=== PATIENT | male | born 1975 | race Caucasian/White ===

== ENCOUNTER 2017-08-11 08:16 | Inpatient (IN) | payer SELFPAY ==
[2017-08-11] MEDS ORDERED: NS 1000 ML 1,000 ML IV ONE (08:20)
--- NOTE | 2017-08-11 08:27 | DR.GENAD ---
HPI - Complaint/Symptoms Chief Complaint Doctors Comments: Patient had what appeared to be a syncopal episode while in the lobby. He states that two days ago he began to be weak and this AM he came to the hospital for evaluation due to weakness. He reports that fifteen years ago he had weakness and had a bleeding ulcer that was cauterized in the stomach.Patients reports that patient has had rectal bleeding for two days. He took Goody powder for stomach pain. He stayed in bed for two days due to weakness. He denies any other medical problem. He admits to a fifteen year history of cigarettes use one pack every two days. He also dips. 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 He denies fever, vomiting or diarrhea. ROS - Review of Systems Constitutional: negative: Diaphoresis Eyes: No Symptoms Reported ENTM: No Symptoms Reported Respiratoy: No Symptoms Reported Cardiovascular: No Symptoms Reported Gastrointestinal/Abdominal: No Symptoms Reported Genitourinary: No Symptoms Reported Neurological: Weakness Musculoskeletal: No Symptoms Reported Integumentary: No Symptoms Reported Hematologic/Lymphatic: No Symptoms Reported Endocrine: No Symptoms Reported Psychiatric: No Symptoms Reported All Other Systems: Reviewed and Negative PE - Vital Signs Vitals: Temperature 96.3 F Pulse Rate 91 Respiratory Rate 20 Blood Pressure 117/66 O2 Sat by Pulse Oximetry 100 - General Limitations: No Limitations General Appearance: Alert, In No Apparent Distress - Head Head Exam: Normal Inspection, Atraumatic - Eyes Eye exam: Normal Appearance, PERRL, EOMI - ENT ENT Exam: Normal Exam, Normal Oropharynx External Ear Exam: Normal External Inspection TM/Canal Exam: Bilateral Normal Nose Exam: Normal Nose Exam Mouth Exam: Normal Inspection Throat Exam: Normal Inspection - Neck Neck Exam: Normal Inspection, Full ROM - Chest Chest Inspection: Normal Inspection - Respiratory Respiratory Exam: Normal Lung Sounds Bilat Respiratory Exam: Bilateral Clear to Auscultation - Cardiovascular Cardiovascular Exam: Regular Rate, Normal Rhythm - Abdominal Exam Abdominal Exam: Normal Inspection, Normal Bowel Sounds Abdominal Tenderness: negative: RUQ, RLQ, LUQ, LLQ, Epigastrium, Suprapubic, Diffuse, Mild, Moderate, Severe, Other - Extremities Extremities Exam: Full ROM - Back Back Exam: Normal Inspection, Full ROM - Neurologic Neurological Exam: Alert, Oriented X3, CN II-XII Intact - Psychiatric Psychiatric Exam: Normal Affect - Skin Skin Exam: Warm, Dry, Intact Course - Reevaluation 1st: Unchanged - Consultation Called: 09:20 (Dr Coffman recommended admission for evaluation and treatment, GI consult) ROR - Labs Reviewed Result Diagrams: 08/11/17 08:30 08/11/17 08:30 Laboratory: WBC 17.5 X10^3/uL (3.6-10.0) H 08/11/17 08:30 RBC 2.04 X10^6/uL (4.7-6.0) L 08/11/17 08:30 Hgb 6.4 g/dL (13.5-18.0) L* 08/11/17 08:30 Hct 18.7 % (42.0-54.0) L* 08/11/17 08:30 MCV 91.8 fL (80.0-100.0) 08/11/17 08:30 MCH 31.5 pg (27.0-34.0) 08/11/17 08:30 MCHC 34.4 g/dL (33.0-35.0) 08/11/17 08:30 RDW 12.8 % (11.6-16.5) 08/11/17 08:30 Plt Count 296 X10^3/uL (150.0-450.0) 08/11/17 08:30 MPV 9.6 fL (7.4-11.0) 08/11/17 08:30 Neut % 47.8 % (42.0-75.0) 08/11/17 08:30 Lymph % 45.7 % (21.0-51.0) 08/11/17 08:30 Clinch % 4.8 % (0.0-13.0) 08/11/17 08:30 Eos % 0.7 % (0.9-2.9) L 08/11/17 08:30 Baso % 1.0 % (0.2-1.0) 08/11/17 08:30 Neut # 8.3 x10^3/uL (2.2-4.8) H 08/11/17 08:30 Lymph # 8.0 X10^3/uL (1.3-2.9) H 08/11/17 08:30 Clinch # 0.8 x10^3/uL (0.3-0.8) 08/11/17 08:30 Eos # 0.1 x10^3/uL (0.0-0.2) 08/11/17 08:30 Baso # 0.2 X10^3/uL (0.0-0.1) H 08/11/17 08:30 Absolute Nucleated RBC 0.1 /100WBC 08/11/17 08:30 Sample Site Rra 08/11/17 08:22 ABG pH 7.480 (7.35-7.45) H 08/11/17 08:22 ABG pCO2 34.0 mmHg (35.0-45.0) L 08/11/17 08:22 ABG pO2 55.0 mmHg (80.0-100.0) L 08/11/17 08:22 ABG HCO3 25.3 mmol/L (22-26) 08/11/17 08:22 ABG O2 Saturation 91.0 % (90-100) 08/11/17 08:22 ABG Base Excess 2.1 mmol/L (-2.0-2.0) H 08/11/17 08:22 Ricardo Test Pos 08/11/17 08:22 A-a Gradient 102.0 mmHg 08/11/17 08:22 FiO2 28.000 08/11/17 08:22 Blood Gas Comments 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
[2017-08-11] MEDS ORDERED: ZOFRAN INJ 4 MG VIAL ONE (08:32)
[2017-08-11] MEDS ORDERED: ZOFRAN INJ 4 MG VIAL IVP ONE (08:32)
--- NOTE | 2017-08-11 08:38 | RAD ---
HISTORY: Weakness and abdominal pain Study: Portable AP chest Comparison: None Findings: The trachea is midline. The cardiac silhouette is unremarkable. The lungs are clear without focal i nfiltrate or effusion. The bony thorax is unremarkable. IMPRESSION: 1. No acute cardiopulmonary disease. Reported By:
[2017-08-11 08:39] VITALS: BMI 26.6
[2017-08-11 08:43] LABS: ABG BASE EXCESS 2.1 mmol/L (-2.0-2.0); ABG HCO3 25.3 mmol/L (22-26)
[2017-08-11 08:44] LABS: ABG ALLEN TEST POS
[2017-08-11 08:53] LABS: NEUTROPHILS # (AUTO) 8.3 x10^3/uL (2.2-4.8); NEUTROPHILS % (AUTO) 47.8 % (42.0-75.0)
[2017-08-11 08:59] LABS: BASOPHILS # (AUTO) 0.2 X10^3/uL (0.0-0.1); EOSINOPHILS # (AUTO) 0.1 x10^3/uL (0.0-0.2); EOSINOPHILS % (AUTO) 0.7 % (0.9-2.9); LYMPHOCYTES % (AUTO) 45.7 % (21.0-51.0); MEAN CORPUSCULAR HEMOGLOBIN 31.5 pg (27.0-34.0); MEAN CORPUSCULAR HGB CONC 34.4 g/dL (33.0-35.0); MEAN CORPUSCULAR VOLUME 91.8 fL (80.0-100.0); MEAN PLATELET VOLUME 9.6 fL (7.4-11.0); MONOCYTES # (AUTO) 0.8 x10^3/uL (0.3-0.8); MONOCYTES % (AUTO) 4.8 % (0.0-13.0); PLATELET COUNT 296 X10^3/uL (150.0-450.0); RED BLOOD COUNT 2.04 X10^6/uL (4.7-6.0); RED CELL DISTRIBUTION WIDTH 12.8 % (11.6-16.5); WHITE BLOOD COUNT 17.5 X10^3/uL (3.6-10.0)
[2017-08-11 09:03] LABS: HEMATOCRIT 18.7 % (42.0-54.0); HEMOGLOBIN 6.4 g/dL (13.5-18.0)
[2017-08-11 09:16] LABS: HYPOCHROMASIA 2+; PLATELET MORPHOLOGY COMMENT NORMAL (NORMAL)
[2017-08-11 09:21] LABS: BLOOD UREA NITROGEN 29 mg/dL (7-18); CALCIUM 7.8 mg/dL (8.5-10.1); CHLORIDE 108 mmol/L (98-107); COR NA(FOR HYPERGLY) 142 mmol/L (136-145); CREATININE 1.17 mg/dL (0.70-1.30); SODIUM 140 mmol/L (136-145); TROPONIN I < 0.02 ng/mL (0-1.5); eGFR BLACK RACES > 60 (>60); eGFR NON BLACK RACES > 60 (>60)
[2017-08-11 09:23] LABS: ALANINE AMINOTRANSFERASE 64 Units/L (12-78); ALBUMIN 2.2 g/dL (3.4-5.0); ALKALINE PHOSPHATASE 50 Units/L (46-116); ASPARTATE AMINO TRANSFERASE 35 Units/L (15-37); CKMB % 2.8 % (<4); COR CA(FOR HYPOALB) 9.2 mg/dL (8.5-10.1); CREATINE KINASE 36 Units/L (39-308); CREATINE KINASE MB < 1.0 ng/mL (0-4.0)
[2017-08-11] MEDS: NS 1000 ML 1,000 ML IV SCH (09:33)
[2017-08-11] MEDS ORDERED: ZOFRAN INJ 4 MG VIAL IVP PRN (09:33)
[2017-08-11] MEDS: PROTONIX INJ 40 MG VIAL 80 MG in NS 100 ML IV 80 ML IV SCH ×2 (11:18→19:28)
[2017-08-11] MEDS ORDERED: NS 250 ML IV 250 ML IV ONE ×2 (13:14→19:16)
[2017-08-12] MEDS: NS 1000 ML 1,000 ML IV SCH ×3 (00:05→19:45)
[2017-08-12 00:11] LABS: HEMOGLOBIN 7.7 g/dL (13.5-18.0)
[2017-08-12] MEDS: PROTONIX INJ 40 MG VIAL 80 MG in NS 100 ML IV 80 ML IV SCH ×4 (05:30→20:45)
[2017-08-12 06:10] LABS: BASOPHILS # (AUTO) 0.1 X10^3/uL (0.0-0.1); BASOPHILS % (AUTO) 0.8 % (0.2-1.0); EOSINOPHILS # (AUTO) 0.1 x10^3/uL (0.0-0.2); EOSINOPHILS % (AUTO) 0.8 % (0.9-2.9); HEMATOCRIT 22.2 % (42.0-54.0); LYMPHOCYTES # (AUTO) 4.6 X10^3/uL (1.3-2.9); LYMPHOCYTES % (AUTO) 35.4 % (21.0-51.0); MEAN CORPUSCULAR HEMOGLOBIN 31.1 pg (27.0-34.0); MEAN CORPUSCULAR HGB CONC 35.1 g/dL (33.0-35.0); MEAN CORPUSCULAR VOLUME 88.5 fL (80.0-100.0); MEAN PLATELET VOLUME 9.7 fL (7.4-11.0); MONOCYTES # (AUTO) 0.6 x10^3/uL (0.3-0.8); MONOCYTES % (AUTO) 4.6 % (0.0-13.0); NEUTROPHILS # (AUTO) 7.5 x10^3/uL (2.2-4.8); NEUTROPHILS % (AUTO) 58.4 % (42.0-75.0); PLATELET COUNT 211 X10^3/uL (150.0-450.0); RED BLOOD COUNT 2.51 X10^6/uL (4.7-6.0); RED CELL DISTRIBUTION WIDTH 13.3 % (11.6-16.5); WHITE BLOOD COUNT 12.9 X10^3/uL (3.6-10.0)
[2017-08-12 06:21] LABS: ALANINE AMINOTRANSFERASE 73 Units/L (12-78); ALBUMIN 2.2 g/dL (3.4-5.0); ALKALINE PHOSPHATASE 50 Units/L (46-116); ASPARTATE AMINO TRANSFERASE 48 Units/L (15-37); BLOOD UREA NITROGEN 18 mg/dL (7-18); CALCIUM 7.9 mg/dL (8.5-10.1); CARBON DIOXIDE 28.2 mmol/L (21-32); CHLORIDE 108 mmol/L (98-107); COR CA(FOR HYPOALB) 9.3 mg/dL (8.5-10.1); CREATININE 0.97 mg/dL (0.70-1.30); SODIUM 140 mmol/L (136-145); TOTAL PROTEIN 5.1 g/dL (6.4-8.2); eGFR BLACK RACES > 60 (>60); eGFR NON BLACK RACES > 60 (>60)
[2017-08-12 06:56] LABS: HEMOGLOBIN 7.8 g/dL (13.5-18.0)
[2017-08-12 07:08] LABS: ANISOCYTOSIS SLIGHT; HYPOCHROMASIA SLIGHT; PLATELET MORPHOLOGY COMMENT NORMAL (NORMAL)
[2017-08-12] MEDS ORDERED: D5 LR 1000 ML 1,000 ML IV ONE (10:08)
[2017-08-12] MEDS ORDERED: DIPRIVAN VIAL 20 ML ONE (11:12)
[2017-08-12] MEDS ORDERED: DIPRIVAN VIAL 10 ML ONE ×2 (11:23→11:27)
[2017-08-12] MEDS: CYTOTEC PO SCH ×4 (12:09→20:45)
[2017-08-12 12:59] LABS: HEMATOCRIT 22.9 % (42.0-54.0); HEMOGLOBIN 7.9 g/dL (13.5-18.0)
[2017-08-12 18:20] LABS: HEMATOCRIT 23.3 % (42.0-54.0); HEMOGLOBIN 8.2 g/dL (13.5-18.0)
[2017-08-13] MEDS: PROTONIX INJ 40 MG VIAL 80 MG in NS 100 ML IV 80 ML IV SCH ×2 (02:00→06:46)
[2017-08-13] MEDS: NS 1000 ML 1,000 ML IV SCH (04:17)
[2017-08-13 05:44] LABS: BASOPHILS # (AUTO) 0.1 X10^3/uL (0.0-0.1); EOSINOPHILS # (AUTO) 0.1 x10^3/uL (0.0-0.2); HEMATOCRIT 21.2 % (42.0-54.0); HEMOGLOBIN 7.5 g/dL (13.5-18.0); LYMPHOCYTES # (AUTO) 3.4 X10^3/uL (1.3-2.9); LYMPHOCYTES % (AUTO) 34.1 % (21.0-51.0); MEAN CORPUSCULAR HEMOGLOBIN 31.8 pg (27.0-34.0); MEAN CORPUSCULAR HGB CONC 35.2 g/dL (33.0-35.0); MEAN CORPUSCULAR VOLUME 90.2 fL (80.0-100.0); MONOCYTES # (AUTO) 0.5 x10^3/uL (0.3-0.8); MONOCYTES % (AUTO) 4.9 % (0.0-13.0); NEUTROPHILS # (AUTO) 5.9 x10^3/uL (2.2-4.8); PLATELET COUNT 211 X10^3/uL (150.0-450.0); RED BLOOD COUNT 2.35 X10^6/uL (4.7-6.0); RED CELL DISTRIBUTION WIDTH 13.3 % (11.6-16.5)
[2017-08-13 05:57] LABS: ALANINE AMINOTRANSFERASE 71 Units/L (12-78); ALBUMIN 2.2 g/dL (3.4-5.0); ALKALINE PHOSPHATASE 46 Units/L (46-116); ASPARTATE AMINO TRANSFERASE 41 Units/L (15-37); BLOOD UREA NITROGEN 9 mg/dL (7-18); CALCIUM 7.7 mg/dL (8.5-10.1); CARBON DIOXIDE 28.2 mmol/L (21-32); CHLORIDE 109 mmol/L (98-107); COR CA(FOR HYPOALB) 9.1 mg/dL (8.5-10.1); CREATININE 0.93 mg/dL (0.70-1.30); SODIUM 142 mmol/L (136-145); eGFR BLACK RACES > 60 (>60); eGFR NON BLACK RACES > 60 (>60)
[2017-08-13 06:25] LABS: HYPOCHROMASIA SLIGHT; MICROCYTOSIS SLIGHT; PLATELET MORPHOLOGY COMMENT NORMAL (NORMAL)
[2017-08-13] MEDS: CYTOTEC PO SCH (08:50)
[2017-08-13 13:04] VITALS: BP 135/92
== END 2017-08-13 13:06 | disposition home or self-care (01) | DRG 378 ==
LOC: ER 08:28 → ICU 09:25
PROVIDERS: ADMIT Obstetrics & Gynecology Obstetrics; ATTEND Obstetrics & Gynecology Obstetrics
PROC: 0DB68ZX Excision of Stomach, Via Natural or Artificial Opening Endoscopic, Diagnostic (ICD-10-PCS; 2017-08-12)
PROC: 0W3P8ZZ Control Bleeding in Gastrointestinal Tract, Via Natural or Artificial Opening Endoscopic (ICD-10-PCS; principal; 2017-08-12 18:15)
DX: K26.4 Chronic or unspecified duodenal ulcer with hemorrhage (principal); K22.10 Ulcer of esophagus without bleeding; R55 Syncope and collapse; R53.1 Weakness; D64.89 Other specified anemias; D72.828 Other elevated white blood cell count; R94.4 Abnormal results of kidney function studies; Z87.11 Personal history of peptic ulcer disease; Z79.1 Long term (current) use of non-steroidal anti-inflammatories (NSAID)
CPT/HCPCS: 36415; 36430; 36600; 71010; 80053; 82270; 82550; 82553; 82803; 84484; 85014; 85018; 85025; 86140; 86850; 86900; 86901; 86922; 93005; 93010; 96365; 96367; 96374; 99284; 99285; A4222; C9113; P9016; S0191; A4217; J2405; J3490; J7120

== ENCOUNTER 2017-08-14 10:29 | Observation (INO) | payer SELFPAY ==
--- NOTE | 2017-08-14 10:49 | DR.GIBLEED ---
HPI - Time Seen Time seen: 10:40 - HPI Comment HPI Comment: Patient was discharged on yesterday s/p treatment for GI bleed. He had an endoscopy on admission, bleeding duodenal ulcer cauterized by Dr Montenegro. He also had an erosive distal esophagitis with a small ulcer, the ulcer was cauterized. He was discharged on protonic and cytotec on 08/13/17. Patient states that he did not have a bowel movement until this AM and it was black. He vomited bright red blood this morning as well. - Complaints Chief Complaint Doctors Comments: Patient states that he awakend this AM felt nauseated, vomited blood and had rectal bleeding. He estimates there was about a cup of blood. He is to follow with Dr Montenegro today according to appointment. PMH - PMH Past Surgical History: Yes Surgical History: Appendectomy - Family History Family Medical History: NM, Coronary Artery Disease, Heart Failure, Sudden Cardiac , Hypertension - Social History Do you use any recreational Drugs:: No ROS - Review of Systems Eyes: No Symptoms Reported ENTM: No Symptoms Reported Respiratoy: No Symptoms Reported Cardiovascular: No Symptoms Reported Gastrointestinal/Abdominal: No Symptoms Reported Genitourinary: No Symptoms Reported Neurological: Weakness Musculoskeletal: No Symptoms Reported Integumentary: No Symptoms Reported Hematologic/Lymphatic: No Symptoms Reported Endocrine: No Symptoms Reported Psychiatric: No Symptoms Reported All Other Systems: Reviewed and Negative PE - Vital Signs Vitals: Pulse Rate 91 Respiratory Rate 18 Blood Pressure [Left Arm] 135/92 Blood Pressure 105/60 O2 Sat by Pulse Oximetry 100 - General Limitations: No Limitations General Appearance: Alert, Other (pale) - Head Head Exam: Normal Inspection, Atraumatic - Eyes Eye exam: Normal Appearance, PERRL, EOMI - ENT ENT Exam: Normal Exam - Neck Neck Exam: Normal Inspection, Full ROM - Chest Chest Inspection: Normal Inspection, Symmetric Chest Wall Rise - Respiratory Respiratory Exam: Normal Lung Sounds Bilat Respiratory Exam: Bilateral Clear to Auscultation - Cardiovascular Cardiovascular Exam: Regular Rate, Normal Rhythm - Abdominal Exam Abdominal Exam: Normal Inspection Abdominal Tenderness: negative: RUQ, RLQ, LUQ, LLQ, Epigastrium, Suprapubic, Diffuse, Mild, Moderate, Severe, Other - Rectal Rectal Exam: Normal Inspection, Normal Rectal Tone. negative: Black Stool, Bloody Stool - Extremities Extremities Exam: Normal Inspection, Full ROM, Normal Capillary Refill - Back Back Exam: Normal Inspection - Neurologic Neurological Exam: Alert, Oriented X3, CN II-XII Intact - Psychiatric Psychiatric Exam: Normal Affect - Skin Skin Exam: Warm, Dry, Intact, Pallor Differential Diagnosis - Differential Diagnosis Differential Diagnosis: Esophageal varicies, Esophagitis Course - Consultation Called: 10:35 (Dr Kilgore agreed to admit to obs for further treatment and evaluation) ROR - Labs Reviewed Result Diagrams: 08/14/17 10:55 08/14/17 10:55 - Diagnosis Discharge Problem: GIB (gastrointestinal bleeding) Qualifiers: GI bleed type/associated pathology: gastric ulcer Qualified Code(s): K25.4 - Chronic or unspecified gastric ulcer with hemorrhage - Discharge Plan Condition: Stable - Follow ups/Referrals Follow ups/Referrals: NFD,None [Primary Care Provider] - 3 days - Instructions
[2017-08-14 11:09] LABS: BASOPHILS % (AUTO) 0.3 % (0.2-1.0); EOSINOPHILS # (AUTO) 0.1 x10^3/uL (0.0-0.2); EOSINOPHILS % (AUTO) 0.6 % (0.9-2.9); LYMPHOCYTES # (AUTO) 2.7 X10^3/uL (1.3-2.9); LYMPHOCYTES % (AUTO) 20.4 % (21.0-51.0); MEAN CORPUSCULAR HEMOGLOBIN 31.4 pg (27.0-34.0); MEAN CORPUSCULAR HGB CONC 34.6 g/dL (33.0-35.0); MEAN CORPUSCULAR VOLUME 90.7 fL (80.0-100.0); MEAN PLATELET VOLUME 8.7 fL (7.4-11.0); MONOCYTES # (AUTO) 0.7 x10^3/uL (0.3-0.8); MONOCYTES % (AUTO) 5.6 % (0.0-13.0); NEUTROPHILS # (AUTO) 9.6 x10^3/uL (2.2-4.8); NEUTROPHILS % (AUTO) 73.1 % (42.0-75.0); PLATELET COUNT 275 X10^3/uL (150.0-450.0); RED BLOOD COUNT 1.95 X10^6/uL (4.7-6.0); RED CELL DISTRIBUTION WIDTH 13.7 % (11.6-16.5); WHITE BLOOD COUNT 13.2 X10^3/uL (3.6-10.0)
[2017-08-14 11:22] LABS: ALANINE AMINOTRANSFERASE 66 Units/L (12-78); ALBUMIN 2.1 g/dL (3.4-5.0); ALKALINE PHOSPHATASE 51 Units/L (46-116); ASPARTATE AMINO TRANSFERASE 38 Units/L (15-37); BLOOD UREA NITROGEN 12 mg/dL (7-18); CALCIUM 7.5 mg/dL (8.5-10.1); CHLORIDE 112 mmol/L (98-107); CREATININE 1.09 mg/dL (0.70-1.30); SODIUM 144 mmol/L (136-145); TOTAL PROTEIN 4.7 g/dL (6.4-8.2); eGFR BLACK RACES > 60 (>60); eGFR NON BLACK RACES > 60 (>60)
[2017-08-14 11:25] LABS: HEMOGLOBIN 6.1 g/dL (13.5-18.0)
[2017-08-14 11:26] LABS: HEMATOCRIT 17.7 % (42.0-54.0)
[2017-08-14 11:27] LABS: HYPOCHROMASIA 1+; PLATELET MORPHOLOGY COMMENT NORMAL (NORMAL)
[2017-08-14] MEDS: NS 1000 ML 1,000 ML IV SCH ×2 (11:32→21:28)
[2017-08-14] MEDS ORDERED: NS 500 ML IV 500 ML IV ONE ×2 (11:56→14:10)
[2017-08-14] MEDS ORDERED: ZOFRAN INJ 4 MG VIAL IVP PRN (12:01)
[2017-08-14 13:39] VITALS: BMI 26.3
[2017-08-14] MEDS: TYLENOL 325 MG TAB PO PRN ×2 (14:47→22:12)
[2017-08-14] MEDS: PROTONIX INJ 40 MG VIAL IVP SCH ×2 (14:47→20:53)
[2017-08-14] MEDS: PEPCID 20 MG IV PREMIX* 20 MG/50 ML BAG IV SCH ×2 (14:47→20:53)
[2017-08-14] MEDS: BENADRYL INJ 50 MG VIAL IVP PRN ×2 (14:48→22:13)
[2017-08-15] MEDS ORDERED: NS 500 ML IV 500 ML IV ONE (02:01)
[2017-08-15] MEDS: NS 1000 ML 1,000 ML IV SCH ×2 (06:03→12:20)
[2017-08-15] MEDS: PROTONIX INJ 40 MG VIAL IVP SCH ×2 (08:21→22:04)
[2017-08-15] MEDS: PEPCID 20 MG IV PREMIX* 20 MG/50 ML BAG IV SCH ×2 (08:21→22:04)
[2017-08-15 09:33] LABS: BASOPHILS % (AUTO) 0.3 % (0.2-1.0); EOSINOPHILS # (AUTO) 0.1 x10^3/uL (0.0-0.2); EOSINOPHILS % (AUTO) 0.9 % (0.9-2.9); HEMATOCRIT 28.2 % (42.0-54.0); HEMOGLOBIN 9.9 g/dL (13.5-18.0); MEAN CORPUSCULAR HEMOGLOBIN 31.2 pg (27.0-34.0); MEAN CORPUSCULAR HGB CONC 35.3 g/dL (33.0-35.0); MEAN CORPUSCULAR VOLUME 88.3 fL (80.0-100.0); MEAN PLATELET VOLUME 9.1 fL (7.4-11.0); MONOCYTES # (AUTO) 0.4 x10^3/uL (0.3-0.8); MONOCYTES % (AUTO) 4.4 % (0.0-13.0); NEUTROPHILS # (AUTO) 5.3 x10^3/uL (2.2-4.8); NEUTROPHILS % (AUTO) 60.4 % (42.0-75.0); PLATELET COUNT 202 X10^3/uL (150.0-450.0); RED BLOOD COUNT 3.19 X10^6/uL (4.7-6.0); RED CELL DISTRIBUTION WIDTH 15.1 % (11.6-16.5); WHITE BLOOD COUNT 8.7 X10^3/uL (3.6-10.0)
[2017-08-15 09:36] LABS: ALANINE AMINOTRANSFERASE 67 Units/L (12-78); ALBUMIN 2.2 g/dL (3.4-5.0); ALKALINE PHOSPHATASE 51 Units/L (46-116); ASPARTATE AMINO TRANSFERASE 39 Units/L (15-37); BLOOD UREA NITROGEN 18 mg/dL (7-18); CALCIUM 7.8 mg/dL (8.5-10.1); CARBON DIOXIDE 27.9 mmol/L (21-32); CHLORIDE 108 mmol/L (98-107); COR CA(FOR HYPOALB) 9.2 mg/dL (8.5-10.1); CREATININE 1.02 mg/dL (0.70-1.30); SODIUM 140 mmol/L (136-145); TOTAL PROTEIN 4.9 g/dL (6.4-8.2); eGFR BLACK RACES > 60 (>60); eGFR NON BLACK RACES > 60 (>60)
--- NOTE | 2017-08-15 19:41 | DR.UPDATE ---
H&P Update History and Physical Update: 'S H&P WAS COMPLETED WITH HIS ADMISSION ON 08/11/17. HE WAS DISCHARGED HOME FROM THE HOSPITAL ON 08/13/17 WITH DIAGNOSIS OF UPPER GI BLEED. PATIENT RETURNED TO THE ED AFTER CONTINUED RECTAL BLEEDING AND VOMITING BLOOD. A ENDOSCOPY WAS PERFORMED ON THE AND PATIENT WAS FOUND TO HAVE A BLEEDING DUODENAL ULCER AND EROSIVE DISTAL ESOPHAGITIS WITH AN ULCER TAHT WAS CAUTERIZED. HE WAS DISCHARGED ON CYTOTEC. ON RETURN TO THE ER, HGB WAS FOUND TO BE 6.1, HCT 17.7, WBC 13.2, RBC 1.95, CHLORIDE 112, CALICUM 7.5, AST 38, TOTAL PROTEIN 4.7, ALBUMIN 2.1, STOOL POSITIVE FOR OCCULT BLOOD. PATIENT WAS ADMITTED FOR FURTHER TREATMENT AND EVALUATION. WE WILL TRANSFUSE 4 UNITS PRBC AND MONITOR H&H. WE PLAN TO FOLLOW UP WITH AM LAB[facility] AND CONTINUE TO MONITOR PATIENT. Changes noted: NO Yes with the following:
[2017-08-16] MEDS: NS 1000 ML 1,000 ML IV SCH ×2 (04:31→04:32)
[2017-08-16 04:37] LABS: BASOPHILS % (AUTO) 0.4 % (0.2-1.0); EOSINOPHILS # (AUTO) 0.1 x10^3/uL (0.0-0.2); EOSINOPHILS % (AUTO) 1.7 % (0.9-2.9); HEMATOCRIT 27.3 % (42.0-54.0); HEMOGLOBIN 9.5 g/dL (13.5-18.0); LYMPHOCYTES # (AUTO) 3.4 X10^3/uL (1.3-2.9); LYMPHOCYTES % (AUTO) 42.1 % (21.0-51.0); MEAN CORPUSCULAR HEMOGLOBIN 30.5 pg (27.0-34.0); MEAN CORPUSCULAR HGB CONC 34.9 g/dL (33.0-35.0); MEAN CORPUSCULAR VOLUME 87.5 fL (80.0-100.0); MEAN PLATELET VOLUME 8.9 fL (7.4-11.0); MONOCYTES # (AUTO) 0.5 x10^3/uL (0.3-0.8); MONOCYTES % (AUTO) 6.7 % (0.0-13.0); NEUTROPHILS # (AUTO) 3.9 x10^3/uL (2.2-4.8); NEUTROPHILS % (AUTO) 49.1 % (42.0-75.0); PLATELET COUNT 215 X10^3/uL (150.0-450.0); RED BLOOD COUNT 3.12 X10^6/uL (4.7-6.0); RED CELL DISTRIBUTION WIDTH 14.8 % (11.6-16.5)
[2017-08-16 05:01] LABS: ALANINE AMINOTRANSFERASE 60 Units/L (12-78); ALBUMIN 2.1 g/dL (3.4-5.0); ALKALINE PHOSPHATASE 47 Units/L (46-116); ASPARTATE AMINO TRANSFERASE 30 Units/L (15-37); BLOOD UREA NITROGEN 10 mg/dL (7-18); CALCIUM 7.8 mg/dL (8.5-10.1); CARBON DIOXIDE 29.4 mmol/L (21-32); CHLORIDE 109 mmol/L (98-107); COR CA(FOR HYPOALB) 9.3 mg/dL (8.5-10.1); CREATININE 1.03 mg/dL (0.70-1.30); SODIUM 145 mmol/L (136-145); TOTAL PROTEIN 4.8 g/dL (6.4-8.2); eGFR BLACK RACES > 60 (>60); eGFR NON BLACK RACES > 60 (>60)
[2017-08-16] MEDS: PEPCID 20 MG IV PREMIX* 20 MG/50 ML BAG IV SCH (09:39)
[2017-08-16] MEDS: PROTONIX INJ 40 MG VIAL IVP SCH (09:40)
[2017-08-16 12:28] VITALS: BP 135/75
== END 2017-08-16 14:20 | disposition home or self-care (01) | DRG 379 ==
LOC: ER 10:36 → MED/SURG 11:54
PROVIDERS: ADMIT Internal Medicine; ATTEND Internal Medicine
PROC: 30233N1 Transfusion of Nonautologous Red Blood Cells into Peripheral Vein, Percutaneous Approach (ICD-10-PCS; principal; 2017-08-14)
PROC: 30233N1 Transfusion of Nonautologous Red Blood Cells into Peripheral Vein, Percutaneous Approach (ICD-10-PCS; 2017-08-14)
PROC: 30233N1 Transfusion of Nonautologous Red Blood Cells into Peripheral Vein, Percutaneous Approach (ICD-10-PCS; 2017-08-15)
PROC: 30233N1 Transfusion of Nonautologous Red Blood Cells into Peripheral Vein, Percutaneous Approach (ICD-10-PCS; 2017-08-15)
DX: K92.2 Gastrointestinal hemorrhage, unspecified (principal); K92.0 Hematemesis; Z98.890 Other specified postprocedural states
CPT/HCPCS: 36415; 36430; 80053; 82270; 85025; 86850; 86900; 86901; 86922; 96365; 96367; 99284; A4222; C9113; P9016; S0028; G0378; J1200